=== PATIENT | female | born 1980 | race American Indian/Alaskan Native ===

== ENCOUNTER 2017-06-09 17:23 | Emergency (ER) | payer MEDICAID, OTHER ==
[2017-06-09 17:25] VITALS: BMI 38.2
--- NOTE | 2017-06-09 17:56 | ED PDOC ---
Arrival/HPI - General Chief Complaint: Flu-like Symptoms Time Seen by Provider: 06/09/17 17:28 Historian: Patient - History of Present Illness Narrative History of Present Illness (Text): 06/09/17 17:45 Nicole Lemos is a 37 year old female who presents to the emergency department complaining of fever, body aches, coughing, and sore throat since last night. No other complaints at this time. Time/Duration: 24 hours Symptom Onset: Gradual Symptom Course: Unchanged Activities at Onset: Light Context: Home Past Medical History - Provider Review Nursing Documentation Reviewed: Yes - Infectious Disease Hx of Infectious Diseases: None - Tetanus Immunization Tetanus Immunization: Unknown - Past Medical History Past Medical History: No Previous - Cardiac Hx Cardiac Disorders: No - Pulmonary Hx Respiratory Disorders: No - Neurological Hx Neurological Disorder: No - HEENT Hx HEENT Disorder: No - Renal Hx Renal Disorder: No - Endocrine/Metabolic Hx Endocrine Disorders: No - Hematological/Oncological Hx Blood Disorders: No - Integumentary Hx Dermatological Disorder: No - Musculoskeletal/Rheumatological Hx Musculoskeletal Disorders: No Hx Falls: No - Gastrointestinal Hx Gastrointestinal Disorders: No - Genitourinary/Gynecological Hx Genitourinary Disorders: Yes Other/Comment: ovarian cysts - Psychiatric Hx Psychophysiologic Disorder: No Hx Substance Use: No - Past Surgical History Past Surgical History: No Previous - Surgical History Hx Section: Yes Hx Tubal Ligation: Yes Other/Comment: bilat ovarian cyst removal - Anesthesia Hx Anesthesia: Yes Hx Anesthesia Reactions: No Hx Malignant Hyperthermia: No - Suicidal Assessment Feels Threatened In Home Enviroment: No Family/Social History - Physician Review Nursing Documentation Reviewed: Yes Family/Social History: No Known Family HX Smoking Status: Former Smoker Hx Alcohol Use: Yes Frequency of alcohol use: Socially Hx Substance Use: No Hx Substance Use Treatment: No Allergies/Home Meds Allergies/Adverse Reactions: Allergies No Known Allergies Allergy (Verified 06/09/17 17:39) Review of Systems - Physician Review All systems were reviewed & negative as marked: Yes - Review of Systems Constitutional: Fevers, Other (Body aches) Eyes: absent: Vision Changes ENT: Sore Throat. absent: Hearing Changes Respiratory: Cough Cardiovascular: absent: Chest Pain Gastrointestinal: absent: Abdominal Pain Genitourinary Female: absent: Dysuria, Frequency Musculoskeletal: absent: Arthralgias Skin: absent: Rash, Pruritis Neurological: absent: Headache, Dizziness Endocrine: absent: Diaphoresis Hemo/Lymphatic: absent: Adenopathy Psychiatric: absent: Anxiety, Depression Physical Exam Vital Signs Reviewed: Yes Vital Signs Temp Pulse Resp BP Pulse Ox 06/09/17 18:07 100.0 F H 06/09/17 17:43 100 F H 102 H 17 127/75 98 Temperature: Febrile Blood Pressure: Normal Pulse: Tachycardic Respiratory Rate: Normal Appearance: Positive for: Well-Appearing, Non-Toxic, Comfortable Pain Distress: None Mental Status: Positive for: Alert and Oriented X 3 - Systems Exam Head: Present: Atraumatic, Normocephalic Pupils: Present: PERRL Extroacular Muscles: Present: EOMI Conjunctiva: Present: Normal Mouth: Present: Moist Mucous Membranes Pharnyx: Present: ERYTHEMA Neck: Present: Normal Range of Motion Respiratory/Chest: Present: Clear to Auscultation, Good Air Exchange. No: Respiratory Distress, Accessory Muscle Use Cardiovascular: Present: Regular Rate and Rhythm, Normal S1, S2. No: Murmurs Abdomen: Present: Normal Bowel Sounds. No: Tenderness, Distention, Peritoneal Signs Back: Present: Normal Inspection Upper Extremity: Present: Normal Inspection. No: Cyanosis, Edema Lower Extremity: Present: Normal Inspection. No: Edema Neurological: Present: GCS=15, CN II-XII Intact, Speech Normal Skin: Present: Warm, Dry, Normal Color. No: Rashes Psychiatric: Present: Alert, Oriented x 3, Normal Insight, Normal Concentration Medical Decision Making ED Course and Treatment: 06/09/17 17:57 Impression: 37 year old female complaining of fever, body aches, coughing, and sore throat since last night. Differential Diagnosis included but are not limited to: Influenza Plan: -- Tylenol -- Reassess and disposition Prior Visits: Notes and results from previous visits were reviewed. Patient was last seen in the emergency department on 05/19/16 for chest wall pain, lower back pain x 4 days. Patient was discharged home. Progress Notes: 06/09/17 19:03 Patient refused Tamiflu. - Lab Interpretations Lab Results: Lab Results 06/09/17 18:18: Influenza Typ A,B (EIA) Negative for flu a/b, Grp A Beta Strep Ag Negative - Medication Orders Current Medication Orders: Discontinued Medications Acetaminophen (Tylenol 325mg Tab) 975 mg PO STAT STA Stop: 06/09/17 17:53 Last Admin: 06/09/17 18:07 Dose: 975 mg MAR Pain/Vitals Document 06/09/17 18:07 SE (Rec: 06/09/17 18:07 SE [id number]) Pain Reassessment Is This A Pain ReAssessment? No Sleep Is patient sleeping during reassessment? No Presence of Pain Presence of Pain No Vitals Temperature (97.6 F-99.6 F) 100.0 F Temperature Source Oral Oseltamivir Phosphate (Tamiflu Cap) 75 mg PO STAT STA PRN Reason: Protocol Stop: 06/09/17 18:53 Last Admin: 06/09/17 18:59 Dose: - Scribe Statement The provider has reviewed the documentation as recorded by the Scribe Claudia Garcia Provider Scribe Attestation: All medical record entries made by the Scribe were at my direction and personally dictated by me. I have reviewed the chart and agree that the record accurately reflects my personal performance of the history, physical exam, medical decision making, and the department course for this patient. I have also personally directed, reviewed, and agree with the discharge instructions and disposition. Disposition/Present on Arrival - Present on Arrival History of DVT/PE: No History of Uncontrolled Diabetes: No Urinary Catheter: No History of Decub. Ulcer: No History Surgical Site Infection Following: None - Disposition Diagnosis: Influenza-like illness Disposition: HOME/ ROUTINE Patient Problems: Current Active Problems Problem Status Onset Influenza-like illness Acute Condition: STABLE Discharge Instructions (ExitCare): Viral Syndrome (ED) Additional Instructions: please follow up with your doctor. return to er with worsening symptoms or concerns. Prescriptions: Oseltamivir Phosphate [Tamiflu] 75 mg PO BID #10 capsule Referrals: Corey Ayoub MD [Primary Care Provider] - Follow up with primary Forms: [employer] (E[place]ian)
[2017-06-09 18:50] LABS: INFLUENZA A B NEGATIVE FOR FLU A/B (NEGATIVE)
[2017-06-09 19:28] VITALS: BP 121/78; PULSE 98; RESP 16; TEMP 98.1; O2SAT 100
== END 2017-06-09 19:26 | disposition home or self-care (01) ==
LOC: ED 17:23
DX: J11.1 Influenza due to unidentified influenza virus with other respiratory manifestations (principal); Z87.891 Personal history of nicotine dependence

== ENCOUNTER 2018-09-25 02:03 | Emergency (ER) | payer SELFPAY ==
[2018-09-25 02:14] VITALS: BMI 33.3
[2018-09-25 02:17] VITALS: TEMP 99
[2018-09-25] MEDS ORDERED: Lidocaine 1% Inj (20ml) ONE (02:31)
[2018-09-25] MEDS ORDERED: Bacitracin 500 Units/gm Oint Foilpak UD TOP ONE (04:03)
[2018-09-25] MEDS ORDERED: TDAP Vaccine 0.5 mL Syr IM ONE (04:03)
--- NOTE | 2018-09-25 04:12 | PCM.PROC ---
Procedures Attestation:: I certify that I have explained the specified Operation(s) or Procedure(s), risks, benefits and reasonable alternatives to the Patient and/or other person responsible. The opportunity was given to ask questions and all questions answered - Laceration involves walter border right lip Site: lip Side (if applicable): right Size (cm): 3 Description: flap, involves walter border Anesthesia used: lidocaine 1% Anesthesia technique: local infiltration Amount (mLs): 5 Skin layer closed with: other (nylon) Size: 6-0 Number of sutures: 5 Technique: simple, interrupted Subcutaneous layer closed with: vicryl Size: 5-0 Number of sutures: 1 Technique: simple, interrupted
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
[2018-09-25 04:22] VITALS: BP 134/89; PULSE 89; RESP 18; O2SAT 99
== END 2018-09-25 04:21 | disposition home or self-care (01) ==
LOC: ED 02:03
DX: S01.511A Laceration without foreign body of lip, initial encounter (principal); Y04.0XXA Assault by unarmed brawl or fight, initial encounter; Z87.891 Personal history of nicotine dependence; Z23 Encounter for immunization